=== PATIENT | male | born 1985 | race Two or more races ===

== ENCOUNTER 2019-04-26 14:01 | Emergency (ER) | payer SELFPAY ==
--- NOTE | 2019-04-26 14:53 | EDM.PDOC ---
ED HPI GENERAL MEDICAL PROBLEM - General Chief Complaint: Allergic Reaction Stated Complaint: ALLERGIC REACTION Time Seen by Provider: 04/26/19 14:30 Source of Information: Reports: Patient History Limitations: Reports: No Limitations - History of Present Illness INITIAL COMMENTS - FREE TEXT/NARRATIVE: 33 presents with concerns of pruritic rash First noticed about 5 years ago Has been increasing over the course of years. Friend noticed it today and thought he should get checked by MD No other systemic symptoms Has never been evaluated by doctor - Related Data Allergies Allergy/AdvReac Type Severity Reaction Status Date / Time No Known Allergies Allergy Verified 04/26/19 14:48 Home Meds: Home Meds Betamethasone Dipropionate 15 gm TP DAILY #1 cream..g. 04/26/19 [Rx] Past Medical History - Past Surgical History Cardiovascular Surgical History: Reports: None Respiratory Surgical History: Reports: None Dermatological Surgical History: Reports: None Social & Family History - Tobacco Use Smoking Status *Q: Current Every Day Smoker Years of Tobacco use: 7 Packs/Tins Daily: 0.5 - Caffeine Use Caffeine Use: Reports: Coffee, Energy Drinks, Soda, Tea - Recreational Drug Use Recreational Drug Use: No ED ROS ALLERGIC REACTION - Review of Systems Review Of Systems: See Below Constitutional: Reports: No Symptoms HEENT: Reports: No Symptoms Respiratory: Reports: No Symptoms Cardiovascular: Reports: No Symptoms Endocrine: Reports: No Symptoms GI/Abdominal: Reports: No Symptoms : Reports: No Symptoms Musculoskeletal: Reports: No Symptoms Skin: Reports: Rash Neurological: Reports: No Symptoms Psychiatric: Reports: No Symptoms Hematologic/Lymphatic: Reports: No Symptoms Immunologic: Reports: No Symptoms ED EXAM GENERAL NO PERIP PULSE - Physical Exam Exam: See Below Exam Limited By: No Limitations General Appearance: Alert, No Apparent Distress Ears: Normal External Exam Nose: Normal Inspection Throat/Mouth: Normal Inspection Head: Atraumatic, Normocephalic Neck: Normal Inspection Respiratory/Chest: No Respiratory Distress Cardiovascular: Regular Rate, Rhythm GI/Abdominal: Soft, Non-Tender Back Exam: Normal Inspection Extremities: Normal Inspection Neurological: Alert, Oriented Psychiatric: Normal Affect Skin Exam: Warm, Other (scatter, raised, erythematous, scaley plaques) Course - Vital Signs Last Recorded V/S: Last Vital Signs Temp 36.0 C 04/26/19 14:18 Pulse 97 04/26/19 14:18 Resp 16 04/26/19 14:18 BP 165/119 H 04/26/19 14:18 Pulse Ox 95 04/26/19 14:18 - Re-Assessments/Exams Free Text/Narrative Re-Assessment/Exam: 33 yo presents with concerns of pruritic rash. Consistent with plaque psorias Will prescribed tropical steroids Faroese speaking friend is going to assist with PCP establishment (she works at the clinic) Discharged 04/26/19 14:56 Departure - Departure Time of Disposition: 14:58 Disposition: Home, Self-Care 01 Clinical Impression: Plaque psoriasis - Discharge Information Referrals: PCP,None [Primary Care Provider] - Additional Instructions: Please apply the prescribed steroid cream to the affected area of skin. 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
== END 2019-04-26 15:19 | disposition home or self-care (01) ==
LOC: JP.ED 14:01
DX: L40.0 Psoriasis vulgaris (principal); F17.210 Nicotine dependence, cigarettes, uncomplicated
CPT/HCPCS: 99282

== ENCOUNTER 2020-04-23 14:26 | Emergency (ER) | payer SELFPAY ==
[2020-04-23] MEDS ORDERED: FLU VACC QS2020-21(6MOS UP)/PF 60 MCG/0.5 ML SYRINGE IM ONE (15:45)
[2020-04-23] MEDS ORDERED: Ketorolac 60 MG/2 ML SDV IM ONE (16:05)
[2020-04-23] MEDS ORDERED: Baclofen 10 MG Tab PO ONE (16:05)
--- NOTE | 2020-04-23 16:08 | EDM.PDOC ---
ED HPI GENERAL MEDICAL PROBLEM - General Chief Complaint: Lower Extremity Injury/Pain Stated Complaint: LEFT HIP PAIN Time Seen by Provider: 04/23/20 16:06 Source of Information: Reports: Patient History Limitations: Reports: No Limitations - History of Present Illness INITIAL COMMENTS - FREE TEXT/NARRATIVE: pt arrived with pain in his left buttock area. He has not had a fall or injury. He has had problems for about 2 weeks. He works at the [employer]. Onset: Gradual Duration: Day(s): Location: Reports: Back Associated Symptoms: Reports: No Other Symptoms. Denies: Chest Pain Left Leg Pain Score (Numeric/FACES): 8 - Related Data Allergies Allergy/AdvReac Type Severity Reaction Status Date / Time No Known Allergies Allergy Verified 04/23/20 15:17 Home Meds: Home Meds Naproxen Sodium [Aleve] 440 mg PO BID PRN 04/23/20 [History] Past Medical History - Past Surgical History Cardiovascular Surgical History: Reports: None Respiratory Surgical History: Reports: None Dermatological Surgical History: Reports: None Social & Family History - Tobacco Use Years of Tobacco use: 10 Packs/Tins Daily: 0.5 - Caffeine Use Caffeine Use: Reports: Coffee, Soda - Recreational Drug Use Recreational Drug Use: No Review of Systems - Review of Systems Review Of Systems: See Below Constitutional: Reports: No Symptoms Eyes: Reports: No Symptoms Ears: Reports: No Symptoms Nose: Reports: No Symptoms Mouth/Throat: Reports: No Symptoms Respiratory: Reports: No Symptoms Cardiovascular: Reports: No Symptoms GI/Abdominal: Reports: No Symptoms Genitourinary: Reports: No Symptoms Musculoskeletal: Reports: Other (pain in lumbar area on the left radiating over the left buttock. ) Skin: Reports: No Symptoms ED EXAM, GENERAL - Physical Exam Exam: See Below Free Text/Narrative:: pt arrived with pain in the left buttok area going down the back of the leg. This started about 10 days ago with out injury and has gotten worse. Exam Limited By: Intoxication General Appearance: Alert, Anxious, Moderate Distress Ears: Normal TMs Nose: Normal Inspection Throat/Mouth: Normal Inspection Head: Atraumatic Neck: Normal Inspection Respiratory/Chest: No Respiratory Distress Cardiovascular: Regular Rate, Rhythm Back Exam: Other ( tender over the left buttock area and going down the left buttock and down the leg. ) Course - Vital Signs Last Recorded V/S: Last Vital Signs Temp 36.2 C 04/23/20 14:47 Pulse 89 04/23/20 14:47 Resp 16 04/23/20 14:47 BP 170/115 H 04/23/20 14:47 Pulse Ox 96 04/23/20 14:47 - Orders/Labs/Meds Orders: Active Orders 24 hr Category Date Time Status Lumbar Spine Min 4V [CR] Stat Exams 04/23/20 16:08 Taken Meds: Medications Discontinued Medications Generic Name Dose Route Start Last Admin Trade Name Freq PRN Reason Stop Dose Admin Baclofen 10 mg 04/23/20 16:05 04/23/20 16:22 Lioresal PO 04/23/20 16:06 10 mg ONETIME ONE Administration Influenza Virus Vaccine 60 mcg 04/23/20 15:45 04/23/20 16:15 Fluzone Quad Syringe IM 04/23/20 15:46 60 mcg .ONCE ONE Administration Ketorolac Tromethamine 60 mg 04/23/20 16:05 04/23/20 16:11 Toradol IM 04/23/20 16:06 60 mg ONETIME ONE Administration Oxycodone/Acetaminophen 1 tab 04/23/20 16:55 04/23/20 16:59 Percocet 325-5 Mg PO 04/23/20 16:56 1 tab ONETIME ONE Administration - Re-Assessments/Exams Free Text/Narrative Re-Assessment/Exam: 04/23/20 16:54 xrays revealed good spine alignment no narrowed interspaces. pt was given torodol and he did have some relief. Departure - Departure Time of Disposition: 16:57 Disposition: Home, Self-Care 01 Condition: Fair Clinical Impression: Sciatic nerve pain - Discharge Information Instructions: Neuropathic Pain Referrals: PCP,None [Primary Care Provider] - Forms: ED Department Discharge Care Plan Goals: no work for 2 days, moist warm packs to left buttock and left low back area, no work for the next 2 days, medrol dospak, motrin 600mg tid, tramodol 50mg q6h prn for pain, see Jhon Carrera if not better. Sepsis Event Note (ED) - Evaluation Sepsis Screening Result: No Definite Risk - My Orders Last 24 Hours: My Active Orders 04/23/20 16:08 Lumbar Spine Min 4V [CR] Stat - Assessment/Plan Last 24 Hours: My Active Orders 04/23/20 16:08 Lumbar Spine Min 4V [CR] Stat
[2020-04-23] MEDS ORDERED: Acetaminophen/oxyCODONE 325-5 MG Tab PO ONE (16:55)
--- NOTE | 2020-04-26 08:52 | CR ---
Lumbar Spine Min 4V CLINICAL HISTORY: Sciatica FINDINGS: The vertebral body heights are maintained. There is minimal spondylosis anteriorly at L5. There is straightening of the lumbar lordosis which may indicate spasm. Alignment is maintained. IMPRESSION: No fracture or subluxation Minimal spondylosis L5 Straightening of the lumbar lordosis may indicate spasm
== END 2020-04-23 17:05 | disposition home or self-care (01) ==
LOC: JP.ED 14:26
DX: M54.42 Lumbago with sciatica, left side (principal); F17.210 Nicotine dependence, cigarettes, uncomplicated; Z23 Encounter for immunization
CPT/HCPCS: 72110; 90471; 90686; 96372; 99283; A9270; J1885; G0008